=== PATIENT | male | born 1970 | race African-American/Black ===

== ENCOUNTER 2022-12-21 03:05 | Emergency (ER) | payer MEDICAID, OTHER ==
[~2022-12-21] VITALS: Ht 172.7 cm; Wt 83.9 kg
[2022-12-21] MEDS ORDERED: CYCL-837 PO (05:22)
[2022-12-21] MEDS ORDERED: ONDANSETRON ODT 4 MG TAB PO ONE (05:30)
[2022-12-21] MEDS ORDERED: MORPHINE SULFATE INJ 2 MG/ml SYRG IM ONE (05:30)
[2022-12-21 06:06] VITALS: BP 124/80
== END 2022-12-21 06:09 | disposition home or self-care (01) ==
LOC: ER 03:05 → EDBD 03:05 → ER 06:09
DX: S30.0XXA Contusion of lower back and pelvis, initial encounter (principal); S70.01XA Contusion of right hip, initial encounter; F17.210 Nicotine dependence, cigarettes, uncomplicated; W01.0XXA Fall on same level from slipping, tripping and stumbling without subsequent striking against object, initial encounter; Y93.89 Activity, other specified; Y92.89 Other specified places as the place of occurrence of the external cause; Y99.8 Other external cause status
CPT/HCPCS: 72131; 72192; 96372; 99285; J2270; Q0162